=== PATIENT | male | born 1935 | race Caucasian/White ===

== ENCOUNTER → 2018-11-19 | Outpatient (CLI) | payer MEDICARE, BC ==
[~2018-11-19] MED LIST: AMBIEN5 MG PO; ASPIR 8181 MG PO; ATENOLOL100 MG PO; FLOMAX0.4 MG PO; GLUCOSAMINE CH1 EAC5 PO; JANTOVEN2 MG PO; L-LYSINE500 M1 PO; LIPITOR20 MG PO; LISINOPRIL40 MG PO; PLAVIX75 MG PO; POTASSIUM 25 M25 MEQ PO; POTASSIUM CHLO20 ME1 PO; PROSCAR5 MG PO; TRIAMTERENE-HC1 EAC2 PO; ZOLPIDEM TARTRAT5 MG PO
--- NOTE | 2018-11-22 13:00 | Diagnostic Imaging Report ---
EXAM: Renal Ultrasound INDICATION: ^[id number] ^[id number] ^CYST OF KIDNEY COMPARISON: Renal ultrasound 10/05/2015. CT abdomen 08/08/2013 TECHNIQUE: Transverse and longitudinal images of the kidneys and bladder were obtained. FINDINGS: Right Kidney: Size: 9.4 cm, right renal cortex 1.8 cm. Appearance: Increased echogenicity. Collecting system: No hydronephrosis Stones: None Cyst/Mass: Several cystic, anechoic/hypoechoic lesions are noted in the right kidney, with the largest measuring as follows: * 2.2 x 2.0 x 1.8 cm in the superior pole, anechoic (previously measured approximately 2.1 x 1.7 x 2.9 cm). * 1.6 x 1.1 x 1.4 cm superior to mid aspect, hypoechoic with single nonvascular septation.. This lesion has slightly irregular borders and was not clearly seen on the prior exam. Left Kidney: Size: 10.7 cm, left renal cortex 1.5 cm. Appearance: Increased echogenicity. Collecting system: No hydronephrosis Stones: None Cyst/Mass: Partially exophytic 5.0 x 4.2 x 5.2 cm cystic, mostly anechoic lesion with single partial septation with nodular component in the mid aspect (previously measured 4.8 x 3.4 x 4.4 cm) Bladder: Bilateral ureteral jets are identified. No focal lesions. Prostate: 5.0 x 4.3 x 5.1 cm (estimated volume 56 mL). IMPRESSION: 1. Bilateral increased renal cortical echogenicity, consistent with medical renal disease. 2. Relatively stable 2.2 cm simple cyst in the right superior pole. 3. A 1.6 cm hypoechoic mildly complex lesion with irregular borders in the superior to mid right kidney was not seen in the prior exam. Recommend CT abdomen with renal mass protocol for further evaluation. 3. Interval increase in size of complex cyst in the mid aspect of the left kidney, with single partial septation with nodular component. This can also be assessed with above-mentioned CT abdomen. 4. Prostatic enlargement, likely due to BPH. Signed by: Dr. Ari Roy M.D. on 11/22/2018 12:57 PM
== END ==
LOC: US 09:35
PROVIDERS: ATTEND Urology
DX: N28.1 Cyst of kidney, acquired (principal)
CPT/HCPCS: 76770

== ENCOUNTER → 2019-03-27 | Outpatient (CLI) | payer MEDICARE, BC ==
[~2019-03-27] MED LIST changes: +IOPAMIDOL 370 MG/ML 200 ML INFUS..BTL INJ ONE; +SODIUM CHLORIDE 0.9% 50ML 50 ML ONE
[2019-03-27 08:51] LABS: BLOOD UREA NITROGEN 16 mg/dL (7-26); BUN/CREATININE RATIO 15 (6-25); EST GLOMERULAR FILTRATION RATE > 60 ML/MIN (60-)
--- NOTE | 2019-03-27 13:27 | Diagnostic Imaging Report ---
EXAM: CT ABDOMEN AND PELVIS with and without IV CONTRAST DATE: 03/27/2019 Time stamp on Exam: 9:31 AM INDICATION: Renal mass COMPARISON: Ultrasound of the kidneys dated 11/19/[address] scan of the abdomen and pelvis dated 08/08/2013. TECHNIQUE: The abdomen and pelvis were scanned using a multidetector helical scanner. Coronal and sagittal reformations were obtained. Renal mass protocol was utilized. Technique modification was accomplished to maintain the lowest dose possible to the patient. IV Contrast: 100 cc of Isovue-370. Oral Contrast: None Radiation Dose: Total DLP 512.29 mGy*cm Estimated effective dose: DLP x 0.015 x size factor FINDINGS: LOWER THORAX: Elevated right hemidiaphragm. LIVER: Several hypodense cystic liver lesions. Indeterminant hypodense segment 8 1.5 cm lesion. Dilated left biliary radicals again noted. BILIARY: The gallbladder is unremarkable. No ductal dilatation. SPLEEN: No masses with a small hypodense cyst. PANCREAS: No masses ADRENALS: No nodules KIDNEYS: Symmetric perfusion. There are several renal cystic lesions; the largest being in the left anterior cortex showing a benign appearance. The suspicious appearing lesion on the recent ultrasound in the medial interpolar region of the right kidney has some calcification. The enhancement pattern is increased and measurement is estimated at 1.6 cm (series 4, image 30). This is smaller and less conspicuous compared to the prior study. This likely represents a small residual renal cell cancer. Exophytic right lower pole cyst is present and there is a small less than 1 cm in size right 9 mm posterior interpolar lesion likely a cyst. Small right upper pole cyst also noted. No hydronephrosis. GI TRACT: No distention, wall thickening or evidence of obstruction. 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 BONES: Degenerative changes of the spine. Sclerotic bone island of both iliac wings. IMPRESSION: 1. Small medial interpolar right renal cortical lesion likely represents a small renal cell carcinoma. 2. Multiple bilateral renal cysts. 3. Indeterminant right hepatic lobe hypodensity high near the dome of the diaphragm Signed by: Dr. Rob Mcclure DO on 03/27/2019 1:24 PM
== END ==
LOC: CT 07:43
PROVIDERS: ATTEND Urology
DX: D41.00 Neoplasm of uncertain behavior of unspecified kidney (principal)
CPT/HCPCS: 36415; 74178; 82565; 84520; Q9967

== ENCOUNTER → 2020-01-24 | Day surgery (SDC) | payer MEDICARE, BC ==
--- NOTE | 2020-01-23 13:45 | NUR ---
Checked Patient temperature via skin: 97.9F. Patient denies being out of the country in the last 14 days. Patient denies being around anyone that has been out of the country. Patient denies new fever, cough, and shortness of breath in the last 14 days.
--- NOTE | 2020-01-23 14:40 | NUR ---
Notified Denise with Dr. Hernandez's office of patient took Warfarin 2mg tablet and plavix 75 mg po today. Denise stated she will notify Dr. Hernandez
[2020-01-24] VITALS (9 sets, daily range): BP systolic 96–124; BP diastolic 60–80
[~2020-01-24] VITALS: Ht 167.6 cm; Wt 51.3 kg
[~2020-01-24] MED LIST changes: +BACITRACIN 50,000 UNIT VIAL ONE; +CARVEDILOL12.5 MG PO; +CLINDAMYCIN 600MG / 50ML 50 ML IV ONE; +DIAZEPAM 5 MG TAB PO ONE; +DIGOXIN125 MCG PO; +FENTANYL CITRATE/PF 100MCG/2 ML INJ ONE; +FUROSEMIDE40 MG PO; -IOPAMIDOL 370 MG/ML 200 ML INFUS..BTL INJ ONE; +LIDOCAINE 1% W/EPINEPHRINE 20 ML VIAL ONE; +MAGNESIUM PO; +MIDAZOLAM HCL 2 MG/2 ML VIAL ONE; +SODIUM CHLORIDE 0.9% 1000ML 2,000 ML ONE; +SODIUM CHLORIDE 0.9% 500ML 500 ML ONE; -SODIUM CHLORIDE 0.9% 50ML 50 ML ONE; +SPIRONOLACTONE25 MG PO; +TEMAZEPAM15 MG PO; +TIMOLOL MALEATE5 M3 OP; +TRAVATAN Z5 ML OP; +[UNRECOGNIZED DRUG - OTHER] PO
--- NOTE | 2020-01-24 09:09 | NUR ---
Spoke with Denise with Dr. Hernandez's office she stated per Dr. Hernandez patient to hold only warfarin for today 01/24/2020.
--- OUTSIDE RECORDS SUMMARY | 2020-01-24 09:11 | XMS REPORT ---
Author Author [facility] Address Unknown Phone Unavailable Care Team Providers Care Director [employer] Name Role Phone MELO CORMIER Unavailable Unavailable Payers Payer Name Policy Type Policy Number Effective Date Expiration Date Problems This patient has no known problems. Allergies, Adverse Reactions, Alerts Allergy Name Allergy Type Status Severity Reaction(s) Onset Date Inactive Date Treating Clinician Comments Penicillins DA Active CO 2013-06-26 00:00:00 Medications This patient has no known medications. Results Test Description Test Time Test Comments Text Results Atomic Results Result Comments SERUM IRON 2020-01-22 14:31:00 SERUM IRON (test code=IRON) 66 ug/dL 50-175 TOTAL IRON BINDING [id number] 14:31:00* Test Item Value Reference Range Comments TOTAL IRON BINDING CAPACITY (test code=TIBC) 261 mcg/dL 250-450 VITAMIN [id number] 14:31:00* Test Item Value Reference Range Comments VITAMIN B12 (test code=VITB12) 573 pg/mL 193-986 FOLIC [id number] 14:31:00* Test Item Value Reference Range Comments FOLIC ACID (test code=FOL) 18.1 ng/mL 3.10-17.50 BASIC METABOLIC [id number] 15:45:00* Test Item Value Reference Range Comments SODIUM (test code=NA) 135 mmol/L 136-145 POTASSIUM (test code=K) 4.7 mmol/L 3.5-5.1 CHLORIDE (test code=CL) 100.0 mmol/L 98-107 CARBON DIOXIDE (test code=CO2) 29.0 mmol/L 21-32 ANION GAP (test code=GAP) 10.7 10-20 GLUCOSE (test code=GLU) 103 mg/dL 74-106 BLOOD UREA NITROGEN (test code=BUN) 24 mg/dL 7-18 GLOMERULAR FILTRATION RATE (test code=GFR) 52 mL/min >=60 Estimated GFR by using Modified MDRD formula.Chronic kidney disease is defined as either kidney damageor GFR <60 mL/min/1.73 m2 for >3 months. CREATININE (test code=CREAT) 1.30 mg/dL 0.7-1.3 BUN/CREATININE RATIO (test code=BUN/CREA) 18.5 10-20 CALCIUM (test code=CA) 9.2 mg/dL 8.5-10.1 LIPID PROFILE (CORONARY RISK)2020-01-21 15:45:00* Test Item Value Reference Range Comments TRIGLYCERIDES (test code=TRIG) 78 mg/dL 20-150 CHOLESTEROL (test code=CHOL) 173 mg/dL 0-200 CHOLESTEROL/HDL RATIO (test code=CHOLHDL) 3.0 RATIO 0-4.9 RISK ASSOCIATED WITH CHOL/HDL RATIOS: Risk Male Female1/2 AVERAGE 3.43 3.27AVERAGE 4.97 4.442X AVERAGE 9.55 7.053X AVERAGE 23.39 11.04 REFERENCE VALUE IS RELATED TO RISK LEVELS ASRECOMMENDED BY THE BRENDEN. HEART, LUNG, AND BLOOD INST. HDL CHOLESTEROL (test code=HDL) 46 mg/dL 40-60 LIPOPROTEIN LDL (test code=LDL) 102 mg/dL 100-129 RN PERSONNEL, CONTACT PHYSICIAN IMMEDIATELY IF THIS IS A STROKE, AMI OR CAROTID STENOSIS PATIENT WHEN THE LDL >100 (1ST OCCURENCE, THIS ADMISSION) Reference Interval: mg/dL mmol/L Optimal <100 <2.6Near/above optimal 100-129 2.6- 3.3Borderline High 130-159 3.4-4.1High 160-189 4.1-4.9Very High >=190 >=4.9=========This LDL result is a direct measurement.========= CREATINE KINASE (CK)2020-01-21 15:45:00* Test Item Value Reference Range Comments CREATINE KINASE (CK) (test code=CK) 40 IUnit/L 26-208 [id number] 15:45:00* Test Item Value Reference Range Comments DIGOXIN (test code=DIG) 0.3 ng/mL 0.90-2.0 NOTE: Spironolactone interference may cause a decrease inreported Digoxin results of 11-30 %. BASIC METABOLIC [id number] 15:24:00* Test Item Value Reference Range Comments SODIUM (test code=NA) 135 mmol/L 136-145 POTASSIUM (test code=K) 4.7 mmol/L 3.5-5.1 CHLORIDE (test code=CL) 100.0 mmol/L 98-107 CARBON DIOXIDE (test code=CO2) mmol/L 21-32 ANION GAP (test code=GAP) 10-20 GLUCOSE (test code=GLU) mg/dL 74-106 BLOOD UREA NITROGEN (test code=BUN) mg/dL 7-18 GLOMERULAR FILTRATION RATE (test code=GFR) mL/min >=60 CREATININE (test code=CREAT) mg/dL 0.7-1.3 BUN/CREATININE RATIO (test code=BUN/CREA) 10-20 CALCIUM (test code=CA) mg/dL 8.5-10.1 LIPID PROFILE (CORONARY RISK)2020-01-21 15:24:00* Test Item Value Reference Range Comments TRIGLYCERIDES (test code=TRIG) mg/dL 20-150 CHOLESTEROL (test code=CHOL) mg/dL 0-200 CHOLESTEROL/HDL RATIO (test code=CHOLHDL) RATIO 0-4.9 HDL CHOLESTEROL (test code=HDL) mg/dL 40-60 LIPOPROTEIN LDL (test code=LDL) mg/dL 100-129 CREATINE KINASE (CK)2020-01-21 15:24:00* Test Item Value Reference Range Comments CREATINE KINASE (CK) (test code=CK) IUnit/L 26-208 [id number] 15:24:00* Test Item Value Reference Range Comments DIGOXIN (test code=DIG) ng/mL 0.90-2.0 PROTHROMBIN [id number] 15:20:00* Test Item Value Reference Range Comments PROTHROMBIN TIME PATIENT (test code=PTP) 22.0 seconds 9.0-14.0 INTERNATIONAL NORMAL RATIO (test code=INR) 1.9 0.8-1.2 The therapeutic range for oral anticoagulant therapy formost indications is an international normalized ratio (INR)of between 2.0 and 3.0. The recommended therapeutic INRrange for various clinical situations is listed below: Clinical Situation INR range Pulmonary e mbolism treatment (2.0-3.0)Venous thrombosis treatmentVenous thrombosis prophylaxis (high risk surgery)Prevention of systemic embolism from: Acute myocardial infarction Valvular heart disease Atrial fibrillation Mechanical prosthetic heart valves (2.5-3.5) CBC W/AUTO [id number] 15:05:00* Test Item Value Reference Range Comments WHITE BLOOD CELL (test code=WBC) 8.5 K/mm3 4.5-12.5 RED BLOOD CELL (test code=RBC) 3.87 mill/mm3 4.0-5.8 HEMOGLOBIN (test code=HGB) 10.7 gram/dL 13.0-17.5 HEMATOCRIT (test code=HCT) 33.6 % 42.0-52.0 MEAN CELL VOLUME (test code=MCV) 86.8 fL 80-98 MEAN CELL HGB (test code=MCH) 27.6 picogram 27.0-33.0 MEAN CELL HGB CONCETRATION (test code=MCHC) 31.8 gram/dL 33.0-36.0 RED CELL DISTRIBUTION WIDTH (test code=RDW) 15.0 % 11.6-16.2 RED CELL DISTRIBUTION WIDTH SD (test code=RDW-SD) 47.3 fL 37.0-51.0 PLATELET COUNT (test code=PLT) 190 K/mm3 150-450 MEAN PLATELET VOLUME (test code=MPV) 11.1 fL 6.7-11.0 NEUTROPHIL % (test code=NT%) 70.1 % 39.0-69.0 IMMATURE GRANULOCYTE % (test code=IG%) 0.2 % 0.0-5.0 LYMPHOCYTE % (test code=LY%) 14.0 % 25.0-55.0 MONOCYTE % (test code=MO%) 7.9 % 0.0-10.0 EOSINOPHIL % (test code=EO%) 7.3 % 0.0-5.0 BASOPHIL % (test code=BA%) 0.5 % 0.0-1.0 NUCLEATED RBC % (test code=NRBC%) 0.0 % 0-0 NEUTROPHIL # (test code=NT#) 5.96 K/mm3 1.8-7.7 IMMATURE GRANULOCYTE # (test code=IG#) 0.02 x10 3/uL 0-0.03 LYMPHOCYTE # (test code=LY#) 1.19 K/mm3 1.0-5.0 MONOCYTE # (test code=MO#) 0.67 K/mm3 0-0.8 EOSINOPHIL # (test code=EO#) 0.62 K/mm3 0.0-0.5 BASOPHIL # (test code=BA#) 0.04 K/mm3 0.0-0.2 NUCLEATED RBC # (test code=NRBC#) 0.00 K/mm3 0.0-0.1 PROTHROMBIN [id number] 11:22:00* Test Item Value Reference Range Comments PROTHROMBIN TIME PATIENT (test code=PTP) 16.9 seconds 9.0-14.0 INTERNATIONAL NORMAL RATIO (test code=INR) 1.4 0.8-1.2 The therapeutic range for oral anticoagulant therapy formost indications is an international normalized ratio (INR)of between 2.0 and 3.0. The recommended therapeutic INRrange for various clinical situations is listed below: Clinical Situation INR range Pulmonary e mbolism treatment (2.0-3.0)Venous thrombosis treatmentVenous thrombosis prophylaxis (high risk surgery)Prevention of systemic embolism from: Acute myocardial infarction Valvular heart disease Atrial fibrillation Mechanical prosthetic heart valves (2.5-3.5) PROTHROMBIN [id number] 11:58:00* Test Item Value Reference Range Comments PROTHROMBIN TIME PATIENT (test code=PTP) 24.0 seconds 9.0-14.0 INTERNATIONAL NORMAL RATIO (test code=INR) 2.1 0.8-1.2 The therapeutic range for oral anticoagulant therapy formost indications is an international normalized ratio (INR)of between 2.0 and 3.0. The recommended therapeutic INRrange for various clinical situations is listed below: Clinical Situation INR range Pulmonary e mbolism treatment (2.0-3.0)Venous thrombosis treatmentVenous thrombosis prophylaxis (high risk surgery)Prevention of systemic embolism from: Acute myocardial infarction Valvular heart disease Atrial fibrillation Mechanical prosthetic heart valves (2.5-3.5) PROTHROMBIN [id number] 12:39:00* Test Item Value Reference Range Comments PROTHROMBIN TIME PATIENT (test code=PTP) 28.0 seconds 9.0-14.0 INTERNATIONAL NORMAL RATIO (test code=INR) 2.4 0.8-1.2 The therapeutic range for oral anticoagulant therapy formost indications is an international normalized ratio (INR)of between 2.0 and 3.0. The recommended therapeutic INRrange for various clinical situations is listed below: Clinical Situation INR range Pulmonary e mbolism treatment (2.0-3.0)Venous thrombosis treatmentVenous thrombosis prophylaxis (high risk surgery)Prevention of systemic embolism from: Acute myocardial infarction Valvular heart disease Atrial fibrillation Mechanical prosthetic heart valves (2.5-3.5) PROTHROMBIN [id number] 15:08:00* Test Item Value Reference Range Comments PROTHROMBIN TIME PATIENT (test code=PTP) 30.0 seconds 9.0-14.0 INTERNATIONAL NORMAL RATIO (test code=INR) 2.5 0.8-1.2 The therapeutic range for oral anticoagulant therapy formost indications is an international normalized ratio (INR)of between 2.0 and 3.0. The recommended therapeutic INRrange for various clinical situations is listed below: Clinical Situation INR range Pulmonary e mbolism treatment (2.0-3.0)Venous thrombosis treatmentVenous thrombosis prophylaxis (high risk surgery)Prevention of systemic embolism from: Acute myocardial infarction Valvular heart disease Atrial fibrillation Mechanical prosthetic heart valves (2.5-3.5) PROTHROMBIN [id number] 15:35:00* Test Item Value Reference Range Comments PROTHROMBIN TIME PATIENT (test code=PTP) 16.9 seconds 9.0-14.0 INTERNATIONAL NORMAL RATIO (test code=INR) 1.4 0.8-1.2 The therapeutic range for oral anticoagulant therapy formost indications is an international normalized ratio (INR)of between 2.0 and 3.0. The recommended therapeutic INRrange for various clinical situations is listed below: Clinical Situation INR range Pulmonary e mbolism treatment (2.0-3.0)Venous thrombosis treatmentVenous thrombosis prophylaxis (high risk surgery)Prevention of systemic embolism from: Acute myocardial infarction Valvular heart disease Atrial fibrillation Mechanical prosthetic heart valves (2.5-3.5) PROTHROMBIN [id number] 15:20:00* Test Item Value Reference Range Comments PROTHROMBIN TIME PATIENT (test code=PTP) 23.7 seconds 9.0-14.0 INTERNATIONAL NORMAL RATIO (test code=INR) 2.0 0.8-1.2 The therapeutic range for oral anticoagulant therapy formost indications is an international normalized ratio (INR)of between 2.0 and 3.0. The recommended therapeutic INRrange for various clinical situations is listed below: Clinical Situation INR range Pulmonary e mbolism treatment (2.0-3.0)Venous thrombosis treatmentVenous thrombosis prophylaxis (high risk surgery)Prevention of systemic embolism from: Acute myocardial infarction Valvular heart disease Atrial fibrillation Mechanical prosthetic heart valves (2.5-3.5) PROTHROMBIN [id number] 15:20:00* Test Item Value Reference Range Comments PROTHROMBIN TIME PATIENT (test code=PTP) 31.3 seconds 9.0-14.0 INTERNATIONAL NORMAL RATIO (test code=INR) 2.7 0.8-1.2 The therapeutic range for oral anticoagulant therapy formost indications is an international normalized ratio (INR)of between 2.0 and 3.0. The recommended therapeutic INRrange for various clinical situations is listed below: Clinical Situation INR range Pulmonary e mbolism treatment (2.0-3.0)Venous thrombosis treatmentVenous thrombosis prophylaxis (high risk surgery)Prevention of systemic embolism from: Acute myocardial infarction Valvular heart disease Atrial fibrillation Mechanical prosthetic heart valves (2.5-3.5) PROTHROMBIN [id number] 11:41:00* Test Item Value Reference Range Comments PROTHROMBIN TIME PATIENT (test code=PTP) 22.7 seconds 9.0-14.0 INTERNATIONAL NORMAL RATIO (test code=INR) 1.9 0.8-1.2 The therapeutic range for oral anticoagulant therapy formost indications is an international normalized ratio (INR)of between 2.0 and 3.0. The recommended therapeutic INRrange for various clinical situations is listed below: Clinical Situation INR range Pulmonary e mbolism treatment (2.0-3.0)Venous thrombosis treatmentVenous thrombosis prophylaxis (high risk surgery)Prevention of systemic embolism from: Acute myocardial infarction Valvular heart disease Atrial fibrillation Mechanical prosthetic heart valves (2.5-3.5) PROTHROMBIN [id number] 17:10:00* Test Item Value Reference Range Comments PROTHROMBIN TIME PATIENT (test code=PTP) 29.6 seconds 9.0-14.0 RESULT VERIFIED BY REPEAT ANALYSIS INTERNATIONAL NORMAL RATIO (test code=INR) 2.5 0.8-1.2 RESULT VERIFIED BY REPEAT ANALYSISThe therapeutic range for oral anticoagulant therapy formost indications is an international normalized ratio (INR)of between 2.0 and 3.0. The recommended therapeutic INRrange for various clinical situations is listed below: Clinical Situation INR range Pulmonary embolism treatment (2.0- 3.0)Venous thrombosis treatmentVenous thrombosis prophylaxis (high risk surgery)Prevention of systemic embolism from: Acute myocardial infarction Valvular heart disease Atrial fibrillation Mechanical prosthetic heart valves (2.5-3.5) BASIC METABOLIC [id number] 16:58:00* Test Item Value Reference Range Comments SODIUM (test code=NA) 133 mmol/L 136-145 POTASSIUM (test code=K) 4.6 mmol/L 3.5-5.1 CHLORIDE (test code=CL) 100.0 mmol/L 98-107 CARBON DIOXIDE (test code=CO2) 27.0 mmol/L 21-32 ANION GAP (test code=GAP) 10.6 10-20 GLUCOSE (test code=GLU) 90 mg/dL 74-106 BLOOD UREA NITROGEN (test code=BUN) 20 mg/dL 7-18 GLOMERULAR FILTRATION RATE (test code=GFR) 58 mL/min >=60 Estimated GFR by using Modified MDRD formula.Chronic kidney disease is defined as either kidney damageor GFR <60 mL/min/1.73 m2 for >3 months. CREATININE (test code=CREAT) 1.20 mg/dL 0.7-1.3 BUN/CREATININE RATIO (test code=BUN/CREA) 16.8 10-20 CALCIUM (test code=CA) 9.0 mg/dL 8.5-10.1 [id number] 16:58:00* Test Item Value Reference Range Comments DIGOXIN (test code=DIG) 0.4 ng/mL 0.90-2.0 NOTE: Spironolactone interference may cause a decrease inreported Digoxin results of 11-30 %. BASIC METABOLIC [id number] 16:39:00* Test Item Value Reference Range Comments SODIUM (test code=NA) 133 mmol/L 136-145 POTASSIUM (test code=K) 4.6 mmol/L 3.5-5.1 CHLORIDE (test code=CL) 100.0 mmol/L 98-107 CARBON DIOXIDE (test code=CO2) mmol/L 21-32 ANION GAP (test code=GAP) 10-20 GLUCOSE (test code=GLU) mg/dL 74-106 BLOOD UREA NITROGEN (test code=BUN) mg/dL 7-18 GLOMERULAR FILTRATION RATE (test code=GFR) mL/min >=60 CREATININE (test code=CREAT) mg/dL 0.7-1.3 BUN/CREATININE RATIO (test code=BUN/CREA) 10-20 CALCIUM (test code=CA) mg/dL 8.5-10.1 [id number] 16:39:00* Test Item Value Reference Range Comments DIGOXIN (test code=DIG) ng/mL 0.90-2.0 PROTHROMBIN [id number] 16:17:00* Test Item Value Reference Range Comments PROTHROMBIN TIME PATIENT (test code=PTP) 29.4 seconds 9.0-14.0 INTERNATIONAL NORMAL RATIO (test code=INR) 2.5 0.8-1.2 The therapeutic range for oral anticoagulant therapy formost indications is an international normalized ratio (INR)of between 2.0 and 3.0. The recommended therapeutic INRrange for various clinical situations is listed below: Clinical Situation INR range Pulmonary e mbolism treatment (2.0-3.0)Venous thrombosis treatmentVenous thrombosis prophylaxis (high risk surgery)Prevention of systemic embolism from: Acute myocardial infarction Valvular heart disease Atrial fibrillation Mechanical prosthetic heart valves (2.5-3.5) CT ABDOMEN/PELVIS [id number] 12:47:00 [place] [address] Patient Name: NEY VENTURA MR #: [id number] : 1935 Age/Sex: 83/M Req #: [id number] Adm Physician: Ordered by: MELO CORMIER MD Report #: [id number] Location: CT Room/Bed: Procedure: [id number] CT/CT AB DOMEN/PELVIS WOW Exam Date: 03/27/19 Exam Time: 0900 REPORT STATUS: Signed EXAM: CT ABDOMEN AND PELVIS with and without IV CONTRAST DATE: 03/27/2019 Time stamp on Exam: 9:31 AM INDICATION: Renal mass COMPARISON: Ultrasound of the kidneys dated 11/19/[address] scan of the abdomen and pelvis dated 08/08/2013. TECHN IQUE: The abdomen and pelvis were scanned using a multidetector helical scanne r. Coronal and sagittal reformations were obtained. Renal mass protocol was ut ilized. Technique modification was accomplished to maintain the lowest dose possible to the patient. IV Contrast: 100 cc of Isovue-370. Oral Contr ast: None Radiation Dose: Total DLP 512.29 mGy*cm Estimated effective dose: DLP x 0.015 x size factor FINDINGS: LOWER THORAX: Elevated right hemidiap hragm. LIVER: Several hypodense cystic liver lesions. Indeterminant hypoden se segment 8 1.5 cm lesion. Dilated left biliary radicals again noted. CODIE IARY: The gallbladder is unremarkable. No ductal dilatation. SPLEEN: No ma sses with a small hypodense cyst. PANCREAS: No masses ADRENALS: No nodule s KIDNEYS: Symmetric perfusion. There are several renal cystic lesions; the largest being in the left anterior cortex showing a benign appearance. The monica picious appearing lesion on the recent ultrasound in the medial interpolar reg ion of the right kidney has some calcification. The enhancement pattern is inc reased and measurement is estimated at 1.6 cm (series 4, image 30). This is sm aller and less conspicuous compared to the prior study. This likely represents a small residual renal cell cancer. Exophytic right lower pole cyst is present and there is a small less than 1 cm in size right 9 mm posterior interpolar lesion likely a cyst. Small right upper pole cyst also noted. No hydronephrosi s. GI TRACT: No distention, wall thickening or evidence of obstruction. VESSELS: Unremarkable PERITONEUM/RETROPERITONEUM: No free air or fluid LYMPH NODES: No lymphadenopathy REPRODUCTIVE ORGANS: Unremarkable BLADDE R: Unremarkable SOFT TISSUES: Again identified is a large right gluteal lip rom. BONES: Degenerative changes of the spine. Sclerotic bone island of both i liac wings. IMPRESSION: 1. Small medial interpolar right renal cortica l lesion likely represents a small renal cell carcinoma. 2. Multiple bilater al renal cysts. 3. Indeterminant right hepatic lobe hypodensity high near the dome of the diaphragm Signed by: Dr. Fabian Mcclure DO on 03/27/2019 1:24 PM Dictated By: FABIAN MCCLURE DO 1326 Transcribed By: DERIAN on 03/27/19 1328 COPY TO: MELO CORMIER MD PROTHROMBIN [id number] 17:00:00* Test Item Value Reference Range Comments PROTHROMBIN TIME PATIENT (test code=PTP) 28.5 seconds 9.0-14.0 INTERNATIONAL NORMAL RATIO (test code=INR) 2.4 0.8-1.2 The therapeutic range for oral anticoagulant therapy formost indications is an international normalized ratio (INR)of between 2.0 and 3.0. The recommended therapeutic INRrange for various clinical situations is listed below: Clinical Situation INR range Pulmonary e mbolism treatment (2.0-3.0)Venous thrombosis treatmentVenous thrombosis prophylaxis (high risk surgery)Prevention of systemic embolism from: Acute myocardial infarction Valvular heart disease Atrial fibrillation Mechanical prosthetic heart valves (2.5-3.5) PROTHROMBIN [id number] 15:31:00* Test Item Value Reference Range Comments PROTHROMBIN TIME PATIENT (test code=PTP) 29.1 seconds 9.0-14.0 INTERNATIONAL NORMAL RATIO (test code=INR) 2.5 0.8-1.2 The therapeutic range for oral anticoagulant therapy formost indications is an international normalized ratio (INR)of between 2.0 and 3.0. The recommended therapeutic INRrange for various clinical situations is listed below: Clinical Situation INR range Pulmonary e mbolism treatment (2.0-3.0)Venous thrombosis treatmentVenous thrombosis prophylaxis (high risk surgery)Prevention of systemic embolism from: Acute myocardial infarction Valvular heart disease Atrial fibrillation Mechanical prosthetic heart valves (2.5-3.5) PROTHROMBIN [id number] 11:32:00* Test Item Value Reference Range Comments PROTHROMBIN TIME PATIENT (test code=PTP) 21.1 seconds 9.0-14.0 INTERNATIONAL NORMAL RATIO (test code=INR) 1.7 0.8-1.2 The therapeutic range for oral anticoagulant therapy formost indications is an international normalized ratio (INR)of between 2.0 and 3.0. The recommended therapeutic INRrange for various clinical situations is listed below: Clinical Situation INR range Pulmonary e mbolism treatment (2.0-3.0)Venous thrombosis treatmentVenous thrombosis prophylaxis (high risk surgery)Prevention of systemic embolism from: Acute myocardial infarction Valvular heart disease Atrial fibrillation Mechanical prosthetic heart valves (2.5-3.5) PROTHROMBIN [id number] 15:20:00* Test Item Value Reference Range Comments PROTHROMBIN TIME PATIENT (test code=PTP) 22.2 seconds 9.0-14.0 INTERNATIONAL NORMAL RATIO (test code=INR) 1.8 0.8-1.2 The therapeutic range for oral anticoagulant therapy formost indications is an international normalized ratio (INR)of between 2.0 and 3.0. The recommended therapeutic INRrange for various clinical situations is listed below: Clinical Situation INR range Pulmonary e mbolism treatment (2.0-3.0)Venous thrombosis treatmentVenous thrombosis prophylaxis (high risk surgery)Prevention of systemic embolism from: Acute myocardial infarction Valvular heart disease Atrial fibrillation Mechanical prosthetic heart valves (2.5-3.5) US RENAL RETROPERITONEAL [id number] 14:53:00 [place] [address] Patient Name: NEY VENTURA MR #: [id number] : 1935 Age/Sex: 83/M Req #: [id number] Adm Physician: Ordered by: MELO CORMIER MD Report #: [id number] Location: US Room/Bed: Procedure: [id number] US/US RE NAL RETROPERITONEAL COMP Exam Date: 11/19/18 Exam Ti me: 1021 REPORT STATUS: Signed E XAM: Renal Ultrasound INDICATION: [id number] CYST OF KIDNE Y COMPARISON: Renal ultrasound 10/05/2015. CT abdomen 08/08/2013 TECHNIQ UE: Transverse and longitudinal images of the kidneys and bladder were obtaine d. FINDINGS: Right Kidney: Size: 9.4 cm, right renal cortex 1.8 cm. Appearance: Increased echogenicity. Collecting system: No hydronep hrosis Stones: None Cyst/Mass: Several cystic, anechoic/hypoechoic lesions a re noted in the right kidney, with the largest measuring as follows: * 2.2 x 2.0 x 1.8 cm in the superior pole, anechoic (previously measured approximate ly 2.1 x 1.7 x 2.9 cm). * 1.6 x 1.1 x 1.4 cm superior to mid aspect, hypoecho ic with single nonvascular septation.. This lesion has slightly irregular bord ers and was not clearly seen on the prior exam. Left Kidney: Size: 10. 7 cm, left renal cortex 1.5 cm. Appearance: Increased echogenicity. Collec ting system: No hydronephrosis Stones: None Cyst/Mass: Partially exophytic 5 .0 x 4.2 x 5.2 cm cystic, mostly anechoic lesion with single partial septation with nodular component in the mid aspect (previously measured 4.8 x 3.4 x 4.4 cm) Bladder: Bilateral ureteral jets are identified. No focal lesions. Prostate: 5.0 x 4.3 x 5.1 cm (estimated volume 56 mL). IMPRESSION: 1. Bilateral increased renal cortical echogenicity, consistent with medical renal disease. 2. Relatively stable 2.2 cm simple cyst in the right superio r pole. 3. A 1.6 cm hypoechoic mildly complex lesion with irregular borders in the superior to mid right kidney was not seen in the prior exam. Recommend CT abdomen with renal mass protocol for further evaluation. 3. Interval increase in size of complex cyst in the mid aspect of the left kidney, with si ngle partial septation with nodular component. This can also be assessed with above-mentioned CT abdomen. 4. Prostatic enlargement, likely due to BPH. Signed by: Dr. Graciela Roy M.D. on 11/22/2018 12:57 PM Dictated By: GRACIELA ROY MD 1 [phone] Transcribed By: DERAIN on 11/22/18 1257 COPY TO: MELO CORMIER MD
--- NOTE | 2020-01-24 13:48 | NUR ---
1348pm RECEIVING NOTE [facility]............................................................... Bedside report received from Jt REED. Identifierx2. Alert oriented and appropriate, PERRLA, respirations even and unlabored to room air. Pulses x4 extremities equal and strong. Pedal pulses PT/DP X4 and marked. Cap fill brisk < 3 sec. Left sc dressing area No gross issues pain,pallor,pressure or dysrhythmia. Skin warm and dry integrity appears D/I IV 20g presents healthy w/o s/s of infiltration or complaint. Abdomen soft and supple. pt offered toileting, denies need to urinate or defecate. No personal affects with patient. Family at Bs. Pt and family verbalizes understanding of POC. Currently w/o complaint of pain or need. ds/rn
--- NOTE | 2020-01-24 16:00 | NUR ---
1600 stand to vid at bedside Bobeated well to arrive at 1600pm for dc ds/rn
--- NOTE | 2020-01-24 17:00 | NUR ---
1700pm [facility] DISCHARGE NURSING NOTE Pt meets DC criteria. Left sc assessed for s/s of complication and presence of hematoma. Skin warm, dry, no discolor, and pulses present. IV removed from left hand. Distal tip appears intact. VS WNL. Pt denies pain, sob, or need at this time. Family at bedside. Review of discharge paperwork and follow up instructions. verbalized understanding. Pt to wheelchair and transported to front of hospital. Transferred to private vehicle under own strength w/o incident with DC paperwork in hand. -lucinda/lexi
--- NOTE | 2020-01-25 06:21 | Operative Report ---
DATE OF PROCEDURE: 01/24/2020 SURGEON: Osmar Hernandez MD DIAGNOSES: 1. Sick sinus syndrome with Cody tachyarrhythmia, chronic atrial fibrillation, and the end-of-life of pacemaker generator. 2. Coronary artery disease with aortocoronary bypass. PROCEDURE: 1. Removal of old pacemaker generator. 2. Insertion of new pacemaker generator. ANESTHESIA: Local and moderate sedation. COMPLICATIONS: None. BLOOD LOSS: None. ONCOLOGY PHYSICIAN ASSISTANT: None. DESCRIPTION OF PROCEDURE: After usual prepping and draping, the left infraclavicular area was infiltrated with local lidocaine. The patient received sedation with Versed and fentanyl. An incision was then made over the old pacemaker generator, which was carefully dissected out and removed from the pocket. The pacemaker lead was then interrogated and the thresholds were obtained, which were satisfactory. The pocket was then inspected for any bleeding and after adequate hemostasis was achieved, the pocket was lavaged with antibiotic solution. The new pacemaker generator was then connected to the ventricular lead and repositioned in the old pocket, which was closed with a continuous suture. The skin was then closed with interrupted suture. Dressing was applied and the patient transferred to the observation area in stable condition. There were no complications. The procedure was well tolerated. The patient will be observed for approximately 4 hours and then will be released and will be seen within 10 days after the procedure for removal of the sutures. The patient will resume all his home medications except for warfarin, which will be resumed on the 24 of January. The patient will resume also his cardiac diet and usual activity with movement of the left upper extremity. The threshold time of change of the generator revealed an R-wave amplitude of 2.5 mV. The resistance was 390 ohms. The stimulation threshold was 0.74 V and the pulse width was 0.4 milliseconds. The pacemaker was programmed at basic tracking rate of 70 beats per minute with an upper tracking rate of 120 beats per minute. The new pacemaker generator was supplied by [employer]. The model is [employer] MRI. The model number is [id number]. Osmar Hernandez MD [facility] /[id number]
== END | disposition home or self-care (01) ==
LOC: CATH LAB 09:01
PROVIDERS: ATTEND Internal Medicine Cardiovascular Disease
DX: I49.5 Sick sinus syndrome (principal); I48.20 Chronic atrial fibrillation, unspecified; I25.810 Atherosclerosis of coronary artery bypass graft(s) without angina pectoris; N28.9 Disorder of kidney and ureter, unspecified; Z88.0 Allergy status to penicillin; Z45.010 Encounter for checking and testing of cardiac pacemaker pulse generator [battery]; Z79.01 Long term (current) use of anticoagulants; Z79.02 Long term (current) use of antithrombotics/antiplatelets; Z95.1 Presence of aortocoronary bypass graft
CPT/HCPCS: 33227; C1786; J2250; J3010; J7030; J7040; 99152; 99153

== ENCOUNTER 2021-11-18 13:36 | Inpatient (IN) | payer MEDICARE, BC ==
[~2021-11-18] VITALS: Ht 167.6 cm; Wt 44.9 kg
[~2021-11-18 13:36] MED LIST changes: -BACITRACIN 50,000 UNIT VIAL ONE; -CLINDAMYCIN 600MG / 50ML 50 ML IV ONE; -DIAZEPAM 5 MG TAB PO ONE; -FENTANYL CITRATE/PF 100MCG/2 ML INJ ONE; -LIDOCAINE 1% W/EPINEPHRINE 20 ML VIAL ONE; -MIDAZOLAM HCL 2 MG/2 ML VIAL ONE; -SODIUM CHLORIDE 0.9% 1000ML 2,000 ML ONE; -SODIUM CHLORIDE 0.9% 500ML 500 ML ONE
[2021-11-18] MEDS ORDERED: SODIUM CHLORIDE 0.9% 1000ML 1,000 ML IV STA (13:54)
[2021-11-18 14:10] LABS: BASOPHILS % 0.1 % (0.0-1.0); EOSINOPHILS % 0.1 % (0.0-6.0); HEMATOCRIT 32.1 % (38.2-49.6); LYMPHOCYTES # (AUTO) 0.7 (1.0-3.2); LYMPHOCYTES % 3.6 % (18.0-39.1); MEAN CORPUSCULAR HEMOGLOBIN 27.5 pg (28-32); MEAN CORPUSCULAR HGB CONC 31.2 g/dL (31-35); MEAN CORPUSCULAR VOLUME 88.4 fL (81-99); MONOCYTES # (AUTO) 0.7 (0.2-0.8); MONOCYTES % 3.7 % (4.4-11.3); NEUTROPHILS # (AUTO) 17.9 (2.1-6.9); PLATELET COUNT 299 x10e3/uL (140-360); RED BLOOD COUNT 3.63 x10e6/uL (4.3-5.7); RED CELL DISTRIBUTION WIDTH 15.9 % (11.7-14.4)
[2021-11-18] MEDS ORDERED: PIPERACILLIN/TAZOBACTAM 3.375 GM in SODIUM CHLORIDE 0.9% 50ML 50 ML IV STA (14:29)
[2021-11-18 14:55] LABS: INR 4.87; PARTIAL THROMBOPLASTIN TIME 61.2 seconds (23.8-35.5)
[2021-11-18 14:57] LABS: PROTHROMBIN TIME 49.2 seconds (11.9-14.5)
[2021-11-18 15:01] LABS: ALBUMIN 2.9 g/dL (3.5-5.0); ANION GAP 14.7 mmol/L (8-16); CALCIUM 9.5 mg/dL (8.4-10.2); CREATININE, SERUM 1.32 mg/dL (0.72-1.25); POTASSIUM 4.7 mmol/L (3.5-5.1)
[2021-11-18 15:07] LABS: CREATINE KINASE MB 4.6 ng/mL (0-5.0)
[2021-11-18] MEDS: CEFEPIME 2 GM in SODIUM CHLORIDE 0.9% 100 ML IV SCH (15:09)
[2021-11-18 17:20] LABS: CLARITY,URINE HAZY (CLEAR); COLOR,URINE STRAW (YELLOW); KETONES,URINE NEGATIVE (NEGATIVE); LEUKOCYTE ESTERASE ,URINE MODERATE (NEGATIVE); NITRITE,URINE POSITIVE (NEGATIVE); PROTEIN,URINE DIPSTICK 2+ (NEGATIVE); URINE UROBILINOGEN 0.2 mg/dL (0.2 - 1)
[2021-11-18] MEDS ORDERED: SODIUM CHLORIDE FLUSH 10 ML SYR INJ PRN (17:30)
[2021-11-18 17:31] LABS: BACTERIA,URINE MANY /HPF
[2021-11-18] MEDS ORDERED: IOPAMIDOL 370 MG/ML 200 ML INFUS..BTL INJ ONE (18:28)
[2021-11-18] MEDS ORDERED: SODIUM CHLORIDE 0.9% 50ML 50 ML ONE (18:28)
[2021-11-18 23:48] LABS: CREATINE KINASE MB 3.8 ng/mL (0-5.0)
[2021-11-19] VITALS (9 sets, daily range): BP systolic 112–132; BP diastolic 55–71
[2021-11-19] MEDS: CEFEPIME 2 GM in SODIUM CHLORIDE 0.9% 100 ML IV SCH ×2 (03:23→15:25)
[2021-11-19] MEDS ORDERED: CEFEPIME 2 GM VIAL ONE (03:27)
[2021-11-19] MEDS ORDERED: SODIUM CHLORIDE 0.9% 100 ML ONE (03:30)
[2021-11-19 05:08] LABS: EOSINOPHILS % 0.1 % (0.0-6.0); HEMATOCRIT 28.3 % (38.2-49.6); HEMOGLOBIN 8.5 g/dL (14.0-18.0); LYMPHOCYTES # (AUTO) 0.6 (1.0-3.2); LYMPHOCYTES % 5.9 % (18.0-39.1); MEAN CORPUSCULAR HEMOGLOBIN 27.4 pg (28-32); MEAN CORPUSCULAR VOLUME 91.3 fL (81-99); MONOCYTES # (AUTO) 0.5 (0.2-0.8); MONOCYTES % 4.4 % (4.4-11.3); NEUTROPHILS # (AUTO) 9.5 (2.1-6.9); NEUTROPHILS % 89.2 % (38.7-80.0); PLATELET COUNT 195 x10e3/uL (140-360); RED CELL DISTRIBUTION WIDTH 15.7 % (11.7-14.4)
[2021-11-19 05:41] LABS: ALBUMIN 2.3 g/dL (3.5-5.0); ALBUMIN/GLOBULIN RATIO 0.8 (0.8-2.0); ANION GAP 14.6 mmol/L (8-16); CREATININE, SERUM 1.14 mg/dL (0.72-1.25); POTASSIUM 4.6 mmol/L (3.5-5.1)
[2021-11-19 07:54] LABS: CREATINE KINASE MB 4.1 ng/mL (0-5.0)
[2021-11-19] MEDS ORDERED: TRAZODONE HCL50 MG PO (10:27)
[2021-11-19] MEDS ORDERED: KLOR-CON M2020 MEQ PO (10:30)
[2021-11-19 14:30] LABS: INR 4.76
[2021-11-19 14:32] LABS: PROTHROMBIN TIME 48.3 seconds (11.9-14.5)
[2021-11-19 14:54] LABS: CREATINE KINASE MB 4.1 ng/mL (0-5.0)
[2021-11-19] MEDS: CARVEDILOL 3.125 MG TAB PO SCH (16:16)
[2021-11-19] MEDS: TRAZODONE HCL 50 MG TAB PO SCH (21:44)
[2021-11-20] VITALS (8 sets, daily range): BP systolic 89–112; BP diastolic 41–60
[2021-11-20] MEDS: CEFEPIME 2 GM in SODIUM CHLORIDE 0.9% 100 ML IV SCH ×2 (03:08→16:21)
[2021-11-20] MEDS ORDERED: HYDROCODONE/APAP 5MG-325MG TAB PO PRN (06:45)
[2021-11-20] MEDS: CARVEDILOL 3.125 MG TAB PO SCH ×2 (09:00→16:08)
[2021-11-20] MEDS: TAMSULOSIN HCL 0.4 MG CAP PO SCH (10:48)
[2021-11-20] MEDS: SPIRONOLACTONE 25 MG TAB PO SCH (10:48)
[2021-11-20] MEDS: POTASSIUM CHLORIDE 20 MEQ TAB CR PO SCH (10:49)
[2021-11-20] MEDS: ATORVASTATIN 40 MG TAB PO SCH (10:49)
[2021-11-20] MEDS: FUROSEMIDE 20 MG TAB PO SCH (10:49)
[2021-11-20] MEDS: FINASTERIDE 5 MG TAB PO SCH (10:49)
[2021-11-20] MEDS ORDERED: SODIUM CHLORIDE 0.9% 100 ML ONE (16:21)
[2021-11-20] MEDS ORDERED: PHYTONADIONE 10 MG/ML AMP SQ ONE (17:15)
[2021-11-20 18:06] LABS: BASOPHILS % 0.2 % (0.0-1.0); HEMATOCRIT 30.3 % (38.2-49.6); HEMOGLOBIN 9.2 g/dL (14.0-18.0); LYMPHOCYTES # (AUTO) 0.2 (1.0-3.2); LYMPHOCYTES % 0.8 % (18.0-39.1); MEAN CORPUSCULAR HEMOGLOBIN 27.3 pg (28-32); MEAN CORPUSCULAR HGB CONC 30.4 g/dL (31-35); MEAN CORPUSCULAR VOLUME 89.9 fL (81-99); MONOCYTES # (AUTO) 0.6 (0.2-0.8); MONOCYTES % 2.5 % (4.4-11.3); NEUTROPHILS # (AUTO) 23.3 (2.1-6.9); NEUTROPHILS % 94.3 % (38.7-80.0); PLATELET COUNT 228 x10e3/uL (140-360); RED BLOOD COUNT 3.37 x10e6/uL (4.3-5.7); RED CELL DISTRIBUTION WIDTH 16.2 % (11.7-14.4)
[2021-11-20 18:15] LABS: INR 4.18
[2021-11-20 18:26] LABS: ALBUMIN 2.5 g/dL (3.5-5.0); ALBUMIN/GLOBULIN RATIO 0.8 (0.8-2.0); ANION GAP 12.8 mmol/L (8-16); CALCIUM 9.7 mg/dL (8.4-10.2); CREATININE, SERUM 1.23 mg/dL (0.72-1.25); POTASSIUM 4.8 mmol/L (3.5-5.1); PROTHROMBIN TIME 43.6 seconds (11.9-14.5)
[2021-11-20] MEDS: TRAZODONE HCL 50 MG TAB PO SCH (21:00)
[2021-11-21] VITALS (9 sets, daily range): BP systolic 90–132; BP diastolic 49–73
[2021-11-21] MEDS: CEFEPIME 2 GM in SODIUM CHLORIDE 0.9% 100 ML IV SCH (02:12)
[2021-11-21 06:05] LABS: INR 1.81; PROTHROMBIN TIME 22.4 seconds (11.9-14.5)
[2021-11-21] MEDS: TAMSULOSIN HCL 0.4 MG CAP PO SCH (08:51)
[2021-11-21] MEDS: SPIRONOLACTONE 25 MG TAB PO SCH (08:51)
[2021-11-21] MEDS: FINASTERIDE 5 MG TAB PO SCH (08:51)
[2021-11-21] MEDS: FUROSEMIDE 20 MG TAB PO SCH (08:51)
[2021-11-21] MEDS: ATORVASTATIN 40 MG TAB PO SCH (08:51)
[2021-11-21] MEDS: CARVEDILOL 3.125 MG TAB PO SCH ×2 (08:51→17:29)
[2021-11-21] MEDS: POTASSIUM CHLORIDE 20 MEQ TAB CR PO SCH (08:52)
[2021-11-21] MEDS ORDERED: SODIUM CHLORIDE 0.9% 250ML 250 ML ONE ×2 (11:34→15:43)
[2021-11-21] MEDS ORDERED: LIDOCAINE HCL 1% LOCAL INJ 20 ML VIAL ONE ×2 (11:34→15:44)
[2021-11-21] MEDS ORDERED: TRIMETHOPRIM/SULFAMETHOXAZOLE 160-800 MG TAB PO SCH (13:15)
[2021-11-21] MEDS ORDERED: DIGOXIN 0.125 MG TAB PO SCH (13:30)
[2021-11-21 14:30] LABS: INR 1.8; PROTHROMBIN TIME 22.3 seconds (11.9-14.5)
[2021-11-21 14:36] LABS: % IRON SATURATION 10 % (15-50); IRON 17 ug/dL (65-175); TOTAL IRON BINDING CAPACITY 165 ug/dL (261-478); TRANSFERRIN 118 mg/dL (174-364)
[2021-11-21] MEDS: IRON SUCROSE 100 MG in SODIUM CHLORIDE 0.9% 100 ML 100 ML IV SCH (15:00)
[2021-11-21] MEDS ORDERED: IOPAMIDOL 300MG/ML 100 ML INFUS..BTL IV ONE (15:44)
[2021-11-21] MEDS ORDERED: SODIUM CHLORIDE 0.9% 50ML 50 ML ONE (16:09)
[2021-11-21] MEDS ORDERED: CEFTRIAXONE 1 GM VIAL ONE (16:09)
[2021-11-21] MEDS ORDERED: MIDAZOLAM HCL 2 MG/2 ML VIAL ONE (16:10)
[2021-11-21] MEDS ORDERED: FENTANYL CITRATE/PF 100MCG/2 ML INJ ONE (16:10)
[2021-11-21] MEDS: DIGOXIN 0.125 MG TAB PO SCH (17:29)
[2021-11-21] MEDS: WARFARIN SOD 2 MG TAB PO SCH (17:29)
[2021-11-21] MEDS: TRIMETHOPRIM/SULFAMETHOXAZOLE 160-800 MG TAB PO SCH (17:29)
[2021-11-21] MEDS: TRAZODONE HCL 50 MG TAB PO SCH (21:00)
[2021-11-22] VITALS (8 sets, daily range): BP systolic 105–134; BP diastolic 53–72
[2021-11-22] MEDS: FINASTERIDE 5 MG TAB PO SCH ×3 (09:00→18:06)
[2021-11-22] MEDS: DIGOXIN 0.125 MG TAB PO SCH (09:00)
[2021-11-22] MEDS: ATORVASTATIN 40 MG TAB PO SCH (09:00)
[2021-11-22] MEDS: CARVEDILOL 3.125 MG TAB PO SCH ×2 (09:00→18:02)
[2021-11-22] MEDS: TRIMETHOPRIM/SULFAMETHOXAZOLE 160-800 MG TAB PO SCH ×4 (09:00→21:00)
[2021-11-22] MEDS: TAMSULOSIN HCL 0.4 MG CAP PO SCH ×3 (09:00→18:06)
[2021-11-22 09:23] LABS: BASOPHILS % 0.1 % (0.0-1.0); HEMATOCRIT 27.1 % (38.2-49.6); HEMOGLOBIN 8.3 g/dL (14.0-18.0); LYMPHOCYTES # (AUTO) 0.3 (1.0-3.2); LYMPHOCYTES % 1.9 % (18.0-39.1); MEAN CORPUSCULAR HEMOGLOBIN 27.8 pg (28-32); MEAN CORPUSCULAR HGB CONC 30.6 g/dL (31-35); MEAN CORPUSCULAR VOLUME 90.6 fL (81-99); MONOCYTES # (AUTO) 0.5 (0.2-0.8); MONOCYTES % 3.6 % (4.4-11.3); NEUTROPHILS # (AUTO) 12.1 (2.1-6.9); NEUTROPHILS % 93.9 % (38.7-80.0); PLATELET COUNT 152 x10e3/uL (140-360); RED BLOOD COUNT 2.99 x10e6/uL (4.3-5.7); RED CELL DISTRIBUTION WIDTH 16.2 % (11.7-14.4)
[2021-11-22 09:44] LABS: POTASSIUM 4.3 mmol/L (3.5-5.1)
[2021-11-22 11:14] LABS: ANION GAP 10.4 mmol/L (8-16); CREATININE, SERUM 1.14 mg/dL (0.72-1.25)
[2021-11-22 11:32] LABS: CALCIUM 9.3 mg/dL (8.4-10.2)
[2021-11-22 15:00] LABS: INR 1.32; PROTHROMBIN TIME 17.5 seconds (11.9-14.5)
[2021-11-22] MEDS: IRON SUCROSE 100 MG in SODIUM CHLORIDE 0.9% 100 ML 100 ML IV SCH (15:31)
[2021-11-22] MEDS: WARFARIN SOD 2 MG TAB PO SCH (18:01)
[2021-11-22] MEDS: TRAZODONE HCL 50 MG TAB PO SCH (21:00)
[2021-11-23] VITALS (7 sets, daily range): BP systolic 107–134; BP diastolic 56–63
[2021-11-23] MEDS: TRIMETHOPRIM/SULFAMETHOXAZOLE 160-800 MG TAB PO SCH ×2 (09:44→21:21)
[2021-11-23] MEDS: ATORVASTATIN 40 MG TAB PO SCH (09:44)
[2021-11-23] MEDS: DIGOXIN 0.125 MG TAB PO SCH (09:44)
[2021-11-23] MEDS: CARVEDILOL 3.125 MG TAB PO SCH ×2 (09:44→15:57)
[2021-11-23] MEDS: TAMSULOSIN HCL 0.4 MG CAP PO SCH (09:44)
[2021-11-23] MEDS: FINASTERIDE 5 MG TAB PO SCH (09:44)
[2021-11-23] MEDS: IRON SUCROSE 100 MG in SODIUM CHLORIDE 0.9% 100 ML 100 ML IV SCH (13:00)
[2021-11-23] MEDS: BALSAM PERU/CASTOR OIL 60 GM OINT...G. TP SCH (14:41)
[2021-11-23] MEDS: TRAZODONE HCL 50 MG TAB PO SCH (21:00)
[2021-11-24] VITALS: BP 116/62
[2021-11-24 04:00] VITALS: BP 145/66
[2021-11-24] MEDS: ATORVASTATIN 40 MG TAB PO SCH ×2 (08:26→12:33)
[2021-11-24] MEDS: DIGOXIN 0.125 MG TAB PO SCH ×2 (08:26→12:33)
[2021-11-24] MEDS: TAMSULOSIN HCL 0.4 MG CAP PO SCH (08:26)
[2021-11-24] MEDS: TRIMETHOPRIM/SULFAMETHOXAZOLE 160-800 MG TAB PO SCH (08:26)
[2021-11-24] MEDS: CARVEDILOL 3.125 MG TAB PO SCH ×2 (08:26→12:33)
[2021-11-24 08:27] VITALS: BP 129/53
[2021-11-24] MEDS: FINASTERIDE 5 MG TAB PO SCH (08:27)
[2021-11-24 09:00] VITALS: BP 129/53
[2021-11-24] MEDS ORDERED: SODIUM CHLORIDE 0.9% 250ML 250 ML ONE (09:07)
[2021-11-24] MEDS ORDERED: IOPAMIDOL 300 MG/ML 15ML VIAL IT ONE (09:07)
[2021-11-24] MEDS ORDERED: LIDOCAINE HCL 1% LOCAL INJ 20 ML VIAL ONE (09:34)
[2021-11-24] MEDS ORDERED: FENTANYL CITRATE/PF 100MCG/2 ML INJ ONE (09:45)
[2021-11-24] MEDS ORDERED: MIDAZOLAM HCL 2 MG/2 ML VIAL ONE (09:45)
[2021-11-24 11:36] VITALS: BP 169/57
[2021-11-24] MEDS: BALSAM PERU/CASTOR OIL 60 GM OINT...G. TP SCH (12:33)
[2021-11-24 13:30] VITALS: BP 107/56
== END 2021-11-24 14:07 | disposition hospice, home (50) | DRG 640 ==
LOC: ER 14:33 → ERHOLD 17:22 → IMCU 11-19 → MED/SURG3 11-20 11:57
PROC: 0T9B30Z Drainage of Bladder with Drainage Device, Percutaneous Approach (ICD-10-PCS; principal; 2021-11-18)
PROC: 30233K1 Transfusion of Nonautologous Frozen Plasma into Peripheral Vein, Percutaneous Approach (ICD-10-PCS; 2021-11-18)
DX: R62.7 Adult failure to thrive (principal); E43 Unspecified severe protein-calorie malnutrition; S32.402A Unspecified fracture of left acetabulum, initial encounter for closed fracture; S72.115A Nondisplaced fracture of greater trochanter of left femur, initial encounter for closed fracture; N39.0 Urinary tract infection, site not specified; E87.1 Hypo-osmolality and hyponatremia; D68.2 Hereditary deficiency of other clotting factors; R64 Cachexia; Z68.1 Body mass index [BMI] 19.9 or less, adult; N17.9 Acute kidney failure, unspecified; D68.9 Coagulation defect, unspecified; I50.22 Chronic systolic (congestive) heart failure; I11.0 Hypertensive heart disease with heart failure; I25.10 Atherosclerotic heart disease of native coronary artery without angina pectoris; Z95.1 Presence of aortocoronary bypass graft; C61 Malignant neoplasm of prostate; M47.892 Other spondylosis, cervical region; M47.896 Other spondylosis, lumbar region; Z85.820 Personal history of malignant melanoma of skin; K76.89 Other specified diseases of liver; N28.1 Cyst of kidney, acquired; R31.29 Other microscopic hematuria; N40.1 Benign prostatic hyperplasia with lower urinary tract symptoms; R35.1 Nocturia; W19.XXXA Unspecified fall, initial encounter; Z95.0 Presence of cardiac pacemaker; Z88.0 Allergy status to penicillin; I48.91 Unspecified atrial fibrillation; Z79.01 Long term (current) use of anticoagulants; K58.9 Irritable bowel syndrome, unspecified; B96.20 Unspecified Escherichia coli [E. coli] as the cause of diseases classified elsewhere
CPT/HCPCS: 36415; 51102; 70450; 71045; 72125; 74177; 74470; 76942; 80048; 80053; 80162; 81001; 82550; 82553; 82607; 83540; 83605; 83690; 83880; 84466; 84484; 85025; 85610; 85730; 86850; 86900; 87086; 87186; 93005; 93306; 94799; 99251; 99284; C1769; J0692; J0696; J1756; J2001; J2250; J3010; J3430; J7030; J7050; P9017; Q9967; U0002